=== PATIENT | male | born 1945 | race Caucasian/White ===

== ENCOUNTER 2019-01-07 18:04 | Inpatient (IN) ==
--- OUTSIDE RECORDS SUMMARY | 2019-01-07 18:08 | External Medical Summary | Continuity of Care Document ---
:1945 Author Name Emily Deleon Address Unavailable Unavailable , Care Team Providers Name Role Phone Atif Deleon Unavailable [email or web address] Unavailable Unavailable Problems Active medical history not documented Allergies and Adverse Reactions Allergy history not documented Medications Medications not documented Procedures Procedures not documented Immunizations Immunizations not documented Plan of Treatment Planned Observations Planned Goals not documented Results No Known Results Results not documented Encounters Appointment; Anil Srivastava M.D. 18-Nov-2010 16:20 Encounter Diagnosis: Problem not documented
[2019-01-07] MEDS ORDERED: SODIUM CHLORIDE 0.9% 1000ML 1,000 ML IV SCH ×2 (18:30→21:51)
--- NOTE | 2019-01-07 18:54 | CT Scan Report ---
CT SCAN OF THE BRAIN WITHOUT IV CONTRAST CLINICAL HISTORY: Change in mental status. COMPARISON STUDY: No priors. TECHNIQUE: Unenhanced axial CT scan of the brain is performed from the vertex to the skull base. A do se lowering technique was utilized adhering to the principles of ALARA. CT DOSE: 614.27 mGy.cm FINDINGS: Brain parenchyma: There are age-related involutional changes noting minimal microangiopathic change . There is an ill-defined geographic region of low attenuation centered in the left basal ganglia and also involving the left thalamus. This measures over 3 cm in dimension, and is best seen on image #1 7. There is no hemorrhage or mass effect. No extra-axial fluid collection is seen. Ventricles, sulci, cisterns: Prominent secondary to involutional change. Intracranial vasculature: There is atherosclerotic calcification of the cavernous carotid arteries. Calvarium: Unremarkable. Sinuses and mastoids: The visualized paranasal sinuses are clear. The mastoid air cells are well pneu matized. Orbits: The bony orbits are grossly intact. IMPRESSION: 1. There is an ill-defined radiographic region of low attenuation centered in the left basal ganglia and involving left thalamus. This is pathologically indeterminant, and may represent a subacute infar ct. A mass lesion could also have this appearance. Correlation with a contrast-enhanced MRI of the br ain is recommended for further assessment. 2. There is no hemorrhage or mass effect. Electronically signed by: Micah Watson M.D. 01/07/2019 6:53 PM
[2019-01-07 19:11] LABS: Basophils # (auto) 0.02 K/uL (0-0.2); Basophils % (auto) 0.3 %; Eosinophils # (auto) 0.29 K/uL (0-0.5); Eosinophils % (auto) 3.9 %; Hematocrit (blood only) 43.5 % (42-52); Hemoglobin 15.2 g/dL (14.0-18.0); Immature Granulocytes # (auto) 0.02 K/uL (0.00-0.02); Immature Granulocytes % (auto) 0.3 %; Lymphocytes # (auto) 2.01 K/uL (1.2-3.4); Lymphocytes % (auto) 27.3 %; Mean Corpuscular Hgb Conc 34.9 g/dL (32-36); Mean Corpuscular Volume 84.5 fL (80-100); Mean Platelet Volume 9.9 fL (7.4-10.4); Monocytes # (auto) 0.44 K/uL (0.11-0.59); Neutrophils # (auto) 4.58 K/uL (1.4-6.5); Neutrophils % (auto) 62.2 %; Platelet Count 183 K/uL (130-400); RDW Coefficient of Variation 13.5 % (11.5-14.5); RDW Standard Deviation 41.2 fL (36.4-46.3); Red Blood Count 5.15 M/uL (4.7-6.1); White Blood Count 7.36 K/uL (4.8-10.8)
[2019-01-07 19:27] LABS: Alanine Aminotransferase 32 U/L (12-78); Albumin Level 3.6 gm/dl (3.4-5.0); Aspartate Aminotransferase 15 U/L (15-37); BUN Creatinine Ratio 15.9 (10-20); Blood Urea Nitrogen 28 mg/dl (7-18); Calcium 9.5 mg/dl (8.5-10.1); Carbon Dioxide 30 mmol/L (21-32); Chloride 105 mmol/L (98-107); Creatinine Clr Calc Pharmacy 48.4 ml/min; Est GFR (African American) 43.5; Est GFR (Non-African American) 37.5; Glucose 114 mg/dl (70-99); Potassium 3.5 mmol/L (3.5-5.1); Sodium 144 mmol/L (136-145)
[2019-01-07 19:38] LABS: Alkaline Phosphatase 35 U/L (45-117); Bilirubin,Total 0.4 mg/dl (0.2-1); Globulin 3.7 gm/dl (2.5-4.0); Total Protein 7.3 gm/dl (6.4-8.2); Troponin I < 0.015 ng/ml (0-0.045)
[2019-01-07 19:39] LABS: Appearance Urine Clear (Clear); Bilirubin Urine Negative (Negative); Blood Urine Negative (Negative); Color Urine Yellow; Glucose Urine UA Negative (Negative); Ketones Urine Negative (Negative); Leukocyte Esterase Urine Negative (Negative); Nitrite Urine Negative (Negative); Protein Urine Negative (Negative); Specific Gravity Urine 1.019 (1.000-1.030); Urobilinogen Urine Positive (Negative)
[2019-01-07 19:50] LABS: T4 Free Thyroxine 1.72 ng/dl (0.8-1.6)
[2019-01-07] MEDS ORDERED: SODIUM CHLORIDE 0.9% 1000ML 1,000 ML IV ONE (19:54)
[2019-01-07 20:13] LABS: INR 1.2 (0.9-1.1); Partial Thromboplastin Ratio 0.9; Partial Thromboplastin Time 23.7 Seconds (21.0-31.0); Prothrombin Time 12.5 Seconds (9.0-12.0)
--- NOTE | 2019-01-07 21:41 | XRay Report ---
SINGLE VIEW CHEST CLINICAL HISTORY: Generalized weakness. FINDINGS: An AP, portable, upright chest radiograph is compared to study dated 07/15/2009. The examina tion is degraded by portable technique and apical lordotic positioning. The heart is mildly enlarge d. The pulmonary vasculature is noncongested. Mild bibasilar atelectasis is noted. No airspace consol idation or large pleural effusion is identified. No pneumothorax is seen. The bony skeletal structure s are osteopenic. The thorax is grossly intact. IMPRESSION: No active disease in the chest. Electronically signed by: Micah Watson M.D. 01/07/2019 9:39 PM
[2019-01-07] MEDS ORDERED: ONDANSETRON INJ 2 MG/ML 2 ML VIAL IV PRN (21:51)
[2019-01-07] MEDS ORDERED: PHARMACIST DISCHARGE MED REC CONSULT PRN (21:51)
[2019-01-07] MEDS ORDERED: NITROGLYCERIN SL 0.4 MG/TAB TAB SL PRN (21:51)
[2019-01-07] MEDS ORDERED: POLYETHYLENE (MIRALAX) 17 GM PACK PO PRN (21:51)
[2019-01-07] MEDS ORDERED: ACETAMINOPHEN 325 MG TAB PO PRN (21:51)
[2019-01-07] MEDS ORDERED: CLOPIDOGREL BISULFATE 75 MG TAB PO ONE (21:51)
[2019-01-07] MEDS ORDERED: DEXTROSE 50% 50 ML SYRINGE IV PRN (22:00)
[2019-01-07] MEDS ORDERED: CARBOHYDRATES FOR HYPOGLYCEMIA PO PRN (22:00)
[2019-01-07] MEDS ORDERED: GLUCAGON FOR INJ 1 MG VIAL SQ PRN (22:00)
[2019-01-07] MEDS ORDERED: GLUCOSE 40% GEL 15 GM TUBE PO PRN (22:00)
[2019-01-07] MEDS ORDERED: GLUCOSE 10 TABS/TUBE PO PRN (22:00)
[2019-01-07] MEDS ORDERED: GADOBUTROL 65ML VIAL IV PRN (23:28)
--- NOTE | 2019-01-07 23:41 | History and Physical Report ---
DATE OF ADMISSION: 01/07/2019 CHIEF COMPLAINT: Memory issues and also right eye vision issues. HISTORY OF PRESENT ILLNESS: A 73-year-old male with past medical history significant for type 2 diabetes, hypothyroidism, hyperlipidemia, BPH, chronic kidney disease stage III, hypertension, obesity, solitary kidney, comes because of ongoing memory issues and also complains of right vision issues. The patient says it is going on for last 3 weeks, but got it more worse last 1 week, but family thinks all started about a week ago. They also said they saw the family doctor, did a mini mental exam, but could not see it in the Epic records. He also saw ophthalmology last Tuesday he told them that he has some vision issues with the right eye and they checked his eye and told it was fine as per the patient and the family. There was question of some balance issues. The patient thinks because he could not see right he has some balance issues, but the family thinks he is walking okay. Speech is clear. No swallowing issues. Appetite is good. Denies any headaches. No nausea, no vomiting, no chest pain, no shortness of breath, no cough, no fever, no chills. Sleeping okay. No abdominal pain. Normal bowel and bladder movements. Denies any blood in the stools or black stools. No dysuria or hematuria. No swelling in the legs, no rash. Currently resting comfortably and hemodynamically stable. ALLERGIES: ASPIRIN. PAST MEDICAL HISTORY: As mentioned above. 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 MEDICATIONS: The patient is on amlodipine 10 mg p.o. daily, chlorthalidone 50 mg p.o. daily, fenofibrate 160 mg p.o. daily, glimepiride 4 mg p.o. daily, insulin glargine U300 14 units daily, levothyroxine 75 mcg p.o. daily, Tradjenta 5 mg p.o. daily Lovastatin 40 mg p.o. daily, metoprolol succinate 50 mg p.o. b.i.d., Flomax 0.4 mg p.o. daily. FAMILY HISTORY: No significant family history. SOCIAL HISTORY: , lives with his . No smoking. Former smoker, quit in 2004. He drinks beer 1-2 weeks. No drug use. REVIEW OF SYMPTOMS: As per HPI. Rest of review of systems negative. PHYSICAL EXAMINATION: GENERAL: The patient is obese, not in acute distress. VITAL SIGNS: Temperature 36.8, pulse 69, respiratory rate 18, blood pressure 160/90, oxygen 96% room air. HEENT: No pallor, no icterus. Pupils equal, round, and reactive to light. His vision is blurry on the right side, but vision jasso are okay. Extraocular muscles intact. NECK: No JVD, no neck masses, no carotid bruits. CARDIOVASCULAR: S1, S2 heard, regular rate and rhythm, no murmur, no gallop. RESPIRATORY SYSTEM: Normal AP diameter. No accessory muscle use. No wheezing, no crackles. ABDOMEN: Soft, bowel sounds present, nontender. No distention. CENTRAL NERVOUS SYSTEM: Cranial nerves II-XII grossly intact. Oriented to name and place only. Could not subtract 7 from 93, could tell his date of . Power 5/5 in all extremities. Sensation is intact. Position sense intact. [id number] test normal. Coordination of movements normal. No pronator drift. Jckq-ak-[id number] test normal. Babinski negative. EXTREMITIES: No edema, no erythema. LABORATORY DATA: WBC 7.3, hemoglobin 15.2, hematocrit 43.5, platelets 183. PT 12.5, INR 1.2, APTT 23.7. Sodium 144, potassium 3.5, chloride 105, bicarbonate 30, BUN 28, creatinine 1.7, serum glucose 114, calcium 9.4, total bilirubin 0.4, AST 15, ALT 34, alkaline phosphatase 35. Troponin I less than 0.015. TSH 0.067. Free T4 1.72. Urinalysis unremarkable. IMAGING: Chest x-ray: No acute findings seen. CT of the head: There is an ill-defined radiographic region of low attenuation centered in the left basal ganglia involving the left thalamus. This is pathologically indeterminate and may represent a subacute infarct, a mass lesion could also have this appearance. Correlation with contrast enhanced MRI of the brain is recommended for further assessment. There is no hemorrhage or mass effect. EKG: Shows left atrial fibrillation, rate of 75. Nonspecific T-wave abnormalities. ASSESSMENT AND PLAN: This is a 73-year-old male who presents with memory issues and also some vision issues in the right eye. CAT scan showing possible subacute infarct on the left basal ganglia and left thalamus and also mass could also have similar appearance. 1. Stroke-like symptoms with some memory issues and some vision issues in the right eye, going on for about 1 week. Saw ophthalmology last week and as per the patient and family,eye exam was fine. CAT scan shows questionable subacute infarct in the left basal ganglia and thalamus region. A mass also could have similar. We will do full stroke workup with MRI scans, MRI of the head with and without contrast, MRA of the head and neck, carotid Doppler, neuro checks, neuro consult. The patient allergic to aspirin,. Will give Plavix. PT, OT and speech evaluation. Close monitor on tele floor. 2. New-onset AFib, rates are under control. The patient is on Toprol-XL at home, question of been on 50 daily or 100 mg b.i.d., needs to verify. Continue with 50 mg daily and monitor. We will consult cardiology. We will start him on IV heparin once MRI scan shows no brain mass. 3. Diabetes. Hold his home p.o. medication, continue home insulin glargine, insulin sliding scale. Follow HbA1c levels. 4. Hypertension. Continue his lisinopril, amlodipine, chlorthalidone, adjust Toprol-XL dose, monitor the blood pressure. 5. Hyperlipidemia. Continue statin. Follow his lipid profile. Also on fenofibrate. 6. Deep venous thrombosis prophylaxis, sequential compression devices for now. DISPOSITION: Close monitor in tele floor. Level 1 full code. MTDD
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
[2019-01-08 04:28] LABS: Basophils # (auto) 0.02 K/uL (0-0.2); Basophils % (auto) 0.3 %; Eosinophils # (auto) 0.27 K/uL (0-0.5); Hematocrit (blood only) 41.9 % (42-52); Hemoglobin 14.5 g/dL (14.0-18.0); Immature Granulocytes # (auto) 0.01 K/uL (0.00-0.02); Immature Granulocytes % (auto) 0.1 %; Lymphocytes # (auto) 2.09 K/uL (1.2-3.4); Lymphocytes % (auto) 30.7 %; Mean Corpuscular Hgb Conc 34.6 g/dL (32-36); Mean Corpuscular Volume 83.5 fL (80-100); Mean Platelet Volume 9.1 fL (7.4-10.4); Monocytes # (auto) 0.51 K/uL (0.11-0.59); Monocytes % (auto) 7.5 %; Neutrophils % (auto) 57.4 %; Platelet Count 190 K/uL (130-400); RDW Coefficient of Variation 13.4 % (11.5-14.5); RDW Standard Deviation 40.2 fL (36.4-46.3); Red Blood Count 5.02 M/uL (4.7-6.1)
[2019-01-08 04:44] LABS: BUN Creatinine Ratio 16.4 (10-20); Calcium 8.9 mg/dl (8.5-10.1); Creatinine Clr Calc Pharmacy 57.3 ml/min; Est GFR (African American) 53.3; Potassium 3.2 mmol/L (3.5-5.1)
[2019-01-08] MEDS ORDERED: POTASSIUM CHLORIDE 20 MEQ TABCR PO STA (06:08)
[2019-01-08 06:19] LABS: Estimated Average Glucose 160 mg/dl; Hemoglobin A1C 7.2 % (4.5-5.6)
[2019-01-08] MEDS ORDERED: LEVOTHYROXINE SODIUM 175 MCG TABLET PO SCH (06:30)
--- NOTE | 2019-01-08 06:34 | Magnetic Resonance Report ---
MR angio head wo con HISTORY: Mental memory loss. Mental status change. cva TECHNIQUE: 3-D [id number] MRA of the brain was performed without contrast. COMPARISON STUDY: None. FINDINGS: Lesion of the left thalamus is again noted. Reference is made to the patient's MRI of the b rain. Mild scattered atherosclerotic change. No evidence for high-grade stenotic process. No evidence for a neurysm. Small caliber right vertebral artery presumably on a congenital basis. IMPRESSION: 1. Left thalamic lesion with reference made to the patient's MRI of same date. 2. Mild scattered atherosclerotic change throughout the intracranial vasculature with no evidence for high-grade stenosis. 3. Hypoplastic right vertebral artery The above report was generated using voice recognition software. It may contain grammatical, syntax or spelling errors. Electronically signed by: Yfn Coronel M.D. 01/08/2019 6:33 AM
--- NOTE | 2019-01-08 06:43 | Magnetic Resonance Report ---
MRI OF THE BRAIN WITHOUT AND WITH IV CONTRAST CLINICAL HISTORY: Memory loss. Right eye visual disturbance. Evaluate for cerebrovascular accident/ma ss. COMPARISON STUDY: Head CT January 07, 2019. TECHNIQUE: Utilizing a 1.5 Sharon magnet and dedicated coil, multiplanar, multiecho imaging of the br ain was performed pre and postcontrast administration. IV administration of 12 mL of Gadavist contra st was uneventful. Thin cut T1 post contrast imaging was performed with multiplanar reconstructions. FINDINGS: No foci of restricted diffusion are noted. Note is made of a heterogeneously enhancing mass within the left frontotemporal region with extension into the left lateral ventricle. This mass penelope ures approximately 4.6 x 4 x 3.5 cm. Portions of this mass are cystic or necrotic. This mass has mode rate associated vasogenic edema with mass effect, including 5 mm of rightward midline shift. A subepe ndymal enhancing nodule within the body of the left lateral ventricle measures 6 mm. Several small en hancing foci within the left temporal lobe measure up to 7 mm. There is no hemorrhage. Basilar cister ns are patent. There are no extra axial collections. Flow-voids in the major intracranial vessels are present. Calvarial signal is normal. Orbits are unremarkable. There may be slight asymmetric dural t hickening of the left tentorium. IMPRESSION: 1. 4.6 x 4 cm heterogeneously enhancing intra-axial mass within the left frontotemporal region with e xtension into the left lateral ventricle. Moderate mass effect with vasogenic edema and mild rightwar d midline shift. A small subependymal enhancing nodule and multiple small enhancing foci within the l eft temporal lobe. 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 Metastatic disease is within the differential although considered less likely. Neurosurgical consultation is recommended. 2. No evidence for acute infarction. Electronically signed by: Dontrell Grove M.D. 01/08/2019 6:41 AM
--- NOTE | 2019-01-08 06:50 | Magnetic Resonance Report ---
MR angio neck wo con CLINICAL HISTORY: Strokelike symptoms. COMPARISON STUDY: No previous studies for comparison. FINDINGS: CT angiography neck was performed without the benefit of contrast. This limits the study. T here is no evidence of hemodynamically significant carotid stenosis. The right vertebral artery appea rs hypoplastic. IMPRESSION: Noncontrast examination. No evidence of hemodynamically significant internal carotid art alexis stenosis Electronically signed by: Levi Wise M.D. 01/08/2019 6:49 AM
[2019-01-08] MEDS ORDERED: dexAMETHasone 6 MG in SYRINGE 0 ML IV STA (07:14)
[2019-01-08] MEDS: CHLORTHALIDONE 25 MG TAB PO SCH (07:51)
[2019-01-08] MEDS: LOVASTATIN 20 MG TAB PO SCH (07:52)
[2019-01-08] MEDS: TAMSULOSIN HCL 0.4 MG CAP PO SCH ×2 (07:52→07:53)
[2019-01-08] MEDS: AMLODIPINE BESYLATE 5 MG TAB PO SCH (07:52)
[2019-01-08] MEDS: INSULIN ASPART 100 UNITS/ML 3 ML PEN SC SCH ×4 (07:56→20:57)
[2019-01-08] MEDS: FENOFIBRATE NANOCRYSTALLIZED 145 MG TABLET PO SCH (08:53)
[2019-01-08] MEDS ORDERED: CLOPIDOGREL BISULFATE 75 MG TAB PO SCH (09:00)
[2019-01-08] MEDS ORDERED: METOPROLOL SUCC 50MG EXT REL TAB PO SCH (09:00)
[2019-01-08] MEDS ORDERED: INSULIN GLARGINE SOLOSTAR 100 UNITS/ML 3 ML PEN SC SCH (09:00)
--- NOTE | 2019-01-08 09:17 | Cardiology Consultation ---
Date of Consultation January 08, 2019 Assessment & Plan (1) Brain tumor: (2) A-fib: The patient has an outpatient work-up scheduled in [place] and will most likely have surgery within the week according to neurosurgery. They are okay with anticoagulation and we will stop his Plavix and start him on Eliquis which can be stopped prior to his operation. I would continue with a daily dose of metoprolol as he is hemodynamically stable and his heart rates are controlled. I considered adding amiodarone for quick conversion but were uncertain as to how long he has been in the atrial fibrillation. In addition, he will have to stay on a monitor for several days while we load the antiarrhythmic. I feel he is hemodynamically stable to undergo surgery and should proceed.I will review his echocardiogram however, and have further recommendations if necessary. History of Present Illness Attending Physician: Sarai Velasco MD History of Present Illness This is a 73-year-old male patient with no prior history of heart disease. He was in his usual state of health until about a month ago he began to have memory loss and balance problems. 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 He is clinically stable. Neurosurgery at [facility] in [place] was contacted and an outpatient evaluation is planned for this week. After admission however, the patient is noted to be in a rate controlled atrial fibrillation. He is completely asymptomatic in regard to the atrial fibrillation. He does have an allergy to aspirin and was started on Plavix. Allergies Allergy/AdvReac Type Severity Reaction Status Date / Time aspirin Allergy Intermediate HIVES Verified 01/07/19 21:22 Home Medications Home Medications Medication Instructions Recorded Confirmed Type amlodipine 10 mg PO DAILY 01/07/19 01/07/19 History chlorthalidone 50 mg PO DAILY 01/07/19 01/07/19 History fenofibrate 160 mg PO DAILY 01/07/19 01/07/19 History glimepiride 4 mg PO DAILY 01/07/19 01/07/19 History insulin glargine U-300 conc 14 unit SUBCUT HS 01/07/19 01/07/19 History [Toujeo SoloStar U-300 Insulin] levothyroxine 175 mcg PO DAILY 01/07/19 01/07/19 History linagliptin [Tradjenta] 5 mg PO DAILY 01/07/19 01/07/19 History lisinopril 5 mg PO DAILY 01/07/19 01/07/19 History lovastatin 40 mg PO DAILY 01/07/19 01/07/19 History metoprolol succinate 50 mg PO DAILY 01/07/19 01/07/19 History tamsulosin 0.4 mg PO DAILY 01/07/19 01/07/19 History Patient History Medical History No pertinent past medical history Surgical History No pertinent past surgical history Family History Other No pertinent family history Social History Preferred Language: Ukrainian Communication Ability: Effective Desulphuring Operator Required: No Beliefs That Will Affect Care: None Current Living Situation: Family Other Information That Helps Us Care for You: No Feels Safe at Home: Yes Safety Concerns: Feels Safe At This Time Smoking Status: Never smoker Do You Dip or Chew Tobacco: No ; Second Hand Exposure: No ; Tobacco Cessation Education Requested by Patient: No Hx Alcohol Use: No Hx Substance Use: No Review of Systems Review of Systems: All systems reviewed & are unremarkable except as noted in HPI & below Not much different additional information can be obtained from this patient. He is not a good historian because of the frontal lobe tumor. Most of the information is taken from [facility] and previous records. Physical Exam Physical Exam: General: no acute distress and stated age Head: normocephalic, no masses, lesions, tenderness or abnormalities Eyes: conjunctiva are pink and non-injected, sclera clear Neck: supple, no adenopathy, no bruits, normal jugular venous pulse, no hepatojugular reflux Chest: normal shape and normal respiratory effort Lungs: clear to auscultation and percussion Cardiac Exam: - regular rate & rhythm, no murmurs gallops or rubs - normal S1, normal S2 Pulses: 2(+) throughout Abdomen: abdomen soft, non-tender, no abnormal masses and no hepatosplenomegaly Musculoskeletal: no gait disturbance, no joint inflammation, no deforming arthritis Extremities: no edema and no cyanosis Neuro: grossly normal exam Results & Data Vital Signs (Past 12 Hours) Vital Signs Temp Pulse Resp BP Pulse Ox 01/08/19 04:00 36.7 C 71 18 148/91 H 95 01/08/19 00:00 36.5 C 74 16 154/103 H 95 01/07/19 22:00 36.5 C 70 18 163/110 H 97 Laboratory Results Laboratory Results - last 24 hr 01/07/19 01/07/19 01/07/19 18:57 18:57 18:57 WBC 7.36 RBC 5.15 Hgb 15.2 Hct 43.5 MCV 84.5 MCH 29.5 MCHC 34.9 RDW Std Deviation 41.2 RDW Coeff of Allan 13.5 Plt Count 183 MPV 9.9 Immature Gran % (Auto) 0.3 Neut % (Auto) 62.2 Lymph % (Auto) 27.3 [place] % (Auto) 6.0 Eos % (Auto) 3.9 Baso % (Auto) 0.3 Immature Gran # (Auto) 0.02 Neut # (Auto) 4.58 Lymph # (Auto) 2.01 [place] # (Auto) 0.44 Eos # (Auto) 0.29 Baso # (Auto) 0.02 PT Cancelled INR Cancelled APTT PTT Ratio Sodium 144 Potassium 3.5 Chloride 105 Carbon Dioxide 30 Anion Gap 8.0 BUN 28 H Creatinine 1.74 H Est Cr Clr Drug Dosing 48.4 Est GFR ( Amer) 43.5 Est GFR (Non-Af Amer) 37.5 BUN/Creatinine Ratio 15.9 Glucose 114 H Estimat Average Glucose Hemoglobin A1c Calcium 9.5 Total Bilirubin 0.4 AST 15 ALT 32 Alkaline Phosphatase 35 L Troponin I < 0.015 Total Protein 7.3 Albumin 3.6 Globulin 3.7 Albumin/Globulin Ratio 1.0 Triglycerides Cholesterol LDL Cholesterol, Calc VLDL Cholesterol, Calc HDL Cholesterol Cholesterol/HDL Ratio TSH 0.067 L Free T4 1.72 H Urine Color Urine Appearance Urine pH Ur Specific [place] Urine Protein Urine Glucose (UA) Urine Ketones Urine Blood Urine Nitrite Urine Bilirubin Urine Urobilinogen Ur Leukocyte Esterase Nasal Screen MRSA (PCR) 01/07/19 01/07/19 01/07/19 19:24 19:51 Unknown WBC RBC Hgb Hct MCV MCH MCHC RDW Std Deviation RDW Coeff of [place] Plt Count MPV Immature Gran % (Auto) Neut % (Auto) Lymph % (Auto) [place] % (Auto) Eos % (Auto) Baso % (Auto) Immature Gran # (Auto) Neut # (Auto) Lymph # (Auto) [place] # (Auto) Eos # (Auto) Baso # (Auto) PT 12.5 H INR 1.2 H APTT 23.7 PTT Ratio 0.9 Sodium Potassium Chloride Carbon Dioxide Anion Gap BUN Creatinine Est Cr Clr Drug Dosing Est GFR ( Amer) Est GFR (Non-Af Amer) BUN/Creatinine Ratio Glucose Estimat Average Glucose Hemoglobin A1c Calcium Total Bilirubin AST ALT Alkaline Phosphatase Troponin I Total Protein Albumin Globulin Albumin/Globulin Ratio Triglycerides Cholesterol LDL Cholesterol, Calc VLDL Cholesterol, Calc HDL Cholesterol Cholesterol/HDL Ratio TSH Free T4 Urine Color Yellow Urine Appearance Clear Urine pH 6.0 Ur Specific [place] 1.019 Urine Protein Negative Urine Glucose (UA) Negative Urine Ketones Negative Urine Blood Negative Urine Nitrite Negative Urine Bilirubin Negative Urine Urobilinogen Positive H Ur Leukocyte Esterase Negative Nasal Screen MRSA (PCR) Negative 01/08/19 01/08/19 01/08/19 04:15 04:15 04:15 WBC 6.80 RBC 5.02 Hgb 14.5 Hct 41.9 L MCV 83.5 MCH 28.9 MCHC 34.6 RDW Std Deviation 40.2 RDW Coeff of [place] 13.4 Plt Count 190 MPV 9.1 Immature Gran % (Auto) 0.1 Neut % (Auto) 57.4 Lymph % (Auto) 30.7 [place] % (Auto) 7.5 Eos % (Auto) 4.0 Baso % (Auto) 0.3 Immature Gran # (Auto) 0.01 Neut # (Auto) 3.90 Lymph # (Auto) 2.09 [place] # (Auto) 0.51 Eos # (Auto) 0.27 Baso # (Auto) 0.02 PT INR APTT PTT Ratio Sodium 145 Potassium 3.2 L Chloride 108 H Carbon Dioxide 28 Anion Gap 9.0 BUN 24 H Creatinine 1.47 H Est Cr Clr Drug Dosing 57.3 Est GFR ( Amer) 53.3 Est GFR (Non-Af Amer) 46.0 BUN/Creatinine Ratio 16.4 Glucose 101 H Estimat Average Glucose 160 Hemoglobin A1c 7.2 H Calcium 8.9 Total Bilirubin AST ALT Alkaline Phosphatase Troponin I Total Protein Albumin Globulin Albumin/Globulin Ratio Triglycerides 243 H Cholesterol 147 LDL Cholesterol, Calc 72 VLDL Cholesterol, Calc 49 HDL Cholesterol 26 Cholesterol/HDL Ratio 6 TSH 0.074 L Free T4 Urine Color Urine Appearance Urine pH Ur Specific [place] Urine Protein Urine Glucose (UA) Urine Ketones Urine Blood Urine Nitrite Urine Bilirubin Urine Urobilinogen Ur Leukocyte Esterase Nasal Screen MRSA (PCR) Medications Administered Current Inpatient Medications Acetaminophen (Tylenol) 650 mg PO Q4H PRN PRN Reason: Pain or Fever Stop: 02/06/19 21:50 Amlodipine Besylate (Norvasc) 10 mg PO DAILY [facility]AM Stop: 02/07/19 08:59 Last Admin: 01/08/19 07:52 Dose: 10 mg Documented by: Chlorthalidone (Hygroton) 50 mg PO DAILY [facility] Stop: 02/07/19 08:59 Last Admin: 01/08/19 07:51 Dose: 50 mg Documented by: Clopidogrel Bisulfate (Plavix) 75 mg PO QAM ADAM Stop: 02/07/19 08:59 Last Admin: 01/08/19 07:53 Dose: 75 mg Documented by: Dextrose (Dextrose 50%) 25 - 50 ml IV UD PRN; Protocol PRN Reason: Hypoglycemia Protocol Stop: 02/06/19 21:59 Fenofibrate (Tricor) 145 mg PO DAILY [facility] Stop: 02/07/19 08:59 Last Admin: 01/08/19 08:53 Dose: 145 mg Documented by: Gadobutrol (Gadavist 65ml) 12 ml IV ONCE PRN PRN Reason: Interaction Checking Stop: 01/11/19 23:27 Last Admin: 01/07/19 23:29 Dose: 12 ml Documented by: Glucagon (Glucagen) 1 mg SQ UD PRN; Protocol PRN Reason: Hypoglycemia Protocol Stop: 02/06/19 21:59 Glucose (Glucose 40%) 15 - 30 gm PO UD PRN; Protocol PRN Reason: Hypoglycemia Protocol Stop: 02/06/19 21:59 Glucose (Dex4 Glucose) 4 - 8 tabs PO UD PRN; Protocol PRN Reason: Hypoglycemia Protocol Stop: 02/06/19 21:59 Sodium Chloride (Nss 1000ml) 1,000 mls @ 75 mls/hr IV .[id number] ADAM Stop: 01/08/19 11:00 Last Admin: 01/07/19 22:25 Dose: 75 mls/hr Documented by: Insulin Aspart (Novolog Flexpen) 0 units SC ACHS [facility] Stop: 02/07/19 07:29 Last Admin: 01/08/19 07:56 Dose: Not Given Documented by: Insulin Glargine (Lantus Solostar Pen) 14 units SQ DAILY [facility] Stop: 02/08/19 08:59 Insulin Glargine (Lantus Solostar Pen) 12 units SC DAILY [facility] Stop: 02/07/19 08:59 Last Admin: 01/08/19 08:52 Dose: 12 units Documented by: [facility]othy[facility]ine [facility]) [facility] Stop: 02/07/19 06:29 Last Admin: 01/08/19 06:24 Dose: 175 mcg Documented by: Lovastatin (Mevacor) 40 mg PO DAILY [facility] Stop: 02/07/19 08:59 Last Admin: 01/08/19 07:52 Dose: 40 mg Documented by: Metoprolol Succinate (Toprol Xl) 50 mg PO DAILY [facility] Stop: 02/07/19 08:59 Last Admin: 01/08/19 07:52 Dose: 50 mg Documented by: Miscellaneous (Carbohydrates For Hypoglycemia) 15 - 30 gm PO UD PRN PRN Reason: Hypoglycemia Treatment Stop: 02/06/19 21:59 Miscellaneous Information (Pharmacist Discharge Med Rec Consult) 1 ea N/A UD PRN PRN Reason: Consult Stop: 02/06/19 21:50 Nitroglycerin (Nitrostat) 0.4 mg SL UD PRN PRN Reason: Chest Pain Stop: 02/06/19 21:50 Ondansetron HCl (Zofran) 4 mg IV Q6H PRN PRN Reason: Nausea Stop: 02/06/19 21:50 Polyethylene Glycol (Miralax Powder Packet) 17 gm PO DAILY PRN PRN Reason: Constipation Stop: 02/06/19 21:50 Tamsulosin HCl (Flomax) 0.4 mg PO DAILY [facility] Stop: 02/07/19 08:59 Last Admin: 01/08/19 07:53 Dose: 0.4 mg Documented by: (1) A-fib Atrial fibrillation type: unspecified Qualified Code(s): I48.91 - Unspecified atrial fibrillation
--- NOTE | 2019-01-08 09:19 | Hospitalist Progress Note ---
Date of Service January 08, 2019 Subjective Free t4 is high. Needs adjustment of synthyroid dose and followup with PCP.. Results & Data Vital Signs (Past 12 Hours) Vital Signs Temp Pulse Resp BP Pulse Ox 01/08/19 04:00 36.7 C 71 18 148/91 H 95 01/08/19 00:00 36.5 C 74 16 154/103 H 95 01/07/19 22:00 36.5 C 70 18 163/110 H 97
[2019-01-08] MEDS ORDERED: PERFLUTREN LIPID MICROSPHERE (DEFINITY) IV ONE (09:21)
[2019-01-08] MEDS: APIXABAN 5 MG TABLET PO SCH ×2 (11:53→20:53)
[2019-01-08] MEDS ORDERED: AMIODARONE 200 MG TAB PO SCH (12:00)
[2019-01-08] MEDS: DEXAMETHASONE SOD PHOSPHATE 2 MG in SYRINGE 0 ML IV SCH ×2 (14:00→20:01)
--- NOTE | 2019-01-08 14:17 | Hospitalist Progress Note ---
Date of Service January 08, 2019 Assessment & Plan (1) Memory loss: Admitted with the acute memory impairment with history of memory problem for the last 1 month Not associated with any significant headache, visual symptoms and/or other neurological symptoms MRI showed 4.6 x 4 cm left frontotemporal lesion with vasogenic edema Case discussed with the neurosurgery at [place] and the neurosurgeon Dr. Lezama will see him on the at 3:15 PM in [place] for evaluation and subsequent management He has put on Decadron 2 mg every 6 hours to decrease the brain edema Case discussed with most of the family members in front of the patient this morning Answered all of their questions Patient has been feeling better and still has memory lapses Hemodynamically stable (2) Brain tumor: MRI of the brain:1. 4.6 x 4 cm heterogeneously enhancing intra-axial mass within the left frontotemporal region with extension into the left lateral ventricle. Moderate mass effect with vasogenic edema and mild rightward midline shift. A small subependymal enhancing nodule and multiple small enhancing foci within the left temporal lobe. 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 Metastatic disease is within the differential although considered less likely. Neurosurgical consultation is recommended. 2. No evidence for acute infarction. As brain tumor-could be malignant Associated vasogenic edema Decadron 2 mg p.o. every 6 hours prescribed Has been feeling (3) A-fib: Noted to have A. fib with controlled rate Evaluated by white metal corrosion proofer Has been put on Eliquis Echo: Aortic valve sclerosis mild without significant aortic stenosis, moderate concentric left ventricular hypertrophy, normal left ventricular size with EF of 55 to 60%, right ventricular systolic function is normal, left atria and right atria are normal, no significant valvular pathology and no interatrial shunt demonstrated Remains stable hemodynamically (4) DAVIS (acute kidney injury): DAVIS likely secondary to dehydration We will monitor her while in the hospital (5) Hypothyroidism: Has been on 175 mcg levothyroxine TSH is noted to be low at 0.067 with free T4 high at 1.72 We will decrease thyroxine dose to 150 mcg daily We need to repeat TSH in about 3 to 4 weeks (6) Diabetes mellitus: Will hold metformin Continue with SSI (7) Hypertension: Blood pressure remains in the upper side of normal Will not change any of his blood pressure medications right now DVT prophylaxis Eliquis CODE STATUS Full The case was discussed with many of the family members including the and service in presence of the patient Answered all of their questions They seem quite satisfied The patient will be discharged home tomorrow He has a strongly advised to keep appointment with neurosurgeon in [place] as an outpatient on 10 January at 3:15 PM Subjective 01/08 The patient was seen and examined in ICU He has been complaining of memory impairment for the last 1 month and the condition got worse yesterday He still has memory impairment but denies any other significant symptoms No headache, no blurred vision, no nausea and/or vomiting, no numbness or tingling in the extremities, no problem with walking, talking and/or swallowing Review of Systems Review of Systems: All systems reviewed and are unremarkable except as noted below Neurologic: + headache(s) (Complaint to have headache about 2 to 3 days back but not now) and + memory loss (Has been having memory impairment for the last 1 month and is worse before admission); no paralysis, no loss of sensation, no tingling, no numbness, no paresthesia and no tremor(s) Physical Exam Physical Exam: Lying in bed comfortably and is very anxious Constitutional: well developed, well nourished, + ill appearing and + obese; no acute distress Eyes: PERRL, conjunctivae normal, anicteric sclerae ENMT: external ear and nose normal, oropharynx normal Neck: trachea midline, no thyromegaly Respiratory: normal respiratory effort Auscultation: lungs clear to auscultation bilaterally; no crackles Cardiovascular: Rate/Rhythm: + abnormal rate, + abnormal rhythm and not tachycardic Heart Sounds: no murmur Neurologic: normal touch/pain/proprioception, CN's II-XI intact bilaterally and moves all extremities; no focal motor deficits Speech / Cognition: normal speech Psychiatric: Affect: + anxious affect Mood: + anxious mood Cognition: + recent memory not intact and + remote memory not intact Results & Data Vital Signs (Past 12 Hours) Vital Signs Temp Pulse Pulse Resp BP BP Pulse Ox 01/08/19 13:00 80 19 01/08/19 10:56 36.8 C 81 13 148/83 H 95 01/08/19 04:00 36.7 C 71 18 148/91 H 95 Laboratory Results Short CBC 01/07/19 01/08/19 Range/Units 18:57 04:15 WBC 7.36 6.80 (4.8-10.8) K/uL Hgb 15.2 14.5 (14.0-18.0) g/dL Hct 43.5 41.9 L (42-52) % Plt Count 183 190 (130-400) K/uL BMP 01/07/19 01/08/19 18:57 04:15 Sodium 144 145 Potassium 3.5 3.2 L Chloride 105 108 H Carbon Dioxide 30 28 BUN 28 H 24 H Creatinine 1.74 H 1.47 H Glucose 114 H 101 H Calcium 9.5 8.9 Cardiac Enzymes 01/07/19 Range/Units 18:57 Troponin I < 0.015 (0-0.045) ng/ml Liver Function 01/07/19 Range/Units 18:57 Total Bilirubin 0.4 (0.2-1) mg/dl AST 15 (15-37) U/L ALT 32 (12-78) U/L Alkaline Phosphatase 35 L (45-117) U/L Albumin 3.6 (3.4-5.0) gm/dl Urine 01/07/19 Range/Units 19:24 Urine Color Yellow Urine Appearance Clear (Clear) Urine pH 6.0 (4.5-7.5) Ur Specific [place] 1.019 (1.000-1.030) Urine Protein Negative (Negative) Urine Glucose (UA) Negative (Negative) Medications Administered Current Inpatient Medications Acetaminophen (Tylenol) 650 mg PO Q4H PRN PRN Reason: Pain or Fever Stop: 02/06/19 21:50 Amlodipine Besylate (Norvasc) 10 mg PO DAILY [facility] Stop: 02/07/19 08:59 Last Admin: 01/08/19 07:52 Dose: 10 mg Documented by: Apixaban (Eliquis) 5 mg PO BID [facility] Stop: 02/07/19 09:29 Last Admin: 01/08/19 11:53 Dose: 5 mg Documented by: Chlorthalidone (Hygroton) 50 mg PO DAILY [facility] Stop: 02/07/19 08:59 Last Admin: 01/08/19 07:51 Dose: 50 mg Documented by: Dextrose (Dextrose 50%) 25 - 50 ml IV UD PRN; Protocol PRN Reason: Hypoglycemia Protocol Stop: 02/06/19 21:59 Fenofibrate (Tricor) 145 mg PO DAILY [facility] Stop: 02/07/19 08:59 Last Admin: 01/08/19 08:53 Dose: 145 mg Documented by: Gadobutrol (Gadavist 65ml) 12 ml IV ONCE PRN PRN Reason: Interaction Checking Stop: 01/11/19 23:27 Last Admin: 01/07/19 23:29 Dose: 12 ml Documented by: Glucagon (Glucagen) 1 mg SQ UD PRN; Protocol PRN Reason: Hypoglycemia Protocol Stop: 02/06/19 21:59 Glucose (Glucose 40%) 15 - 30 gm PO UD PRN; Protocol PRN Reason: Hypoglycemia Protocol Stop: 02/06/19 21:59 Glucose (Dex4 Glucose) 4 - 8 tabs PO UD PRN; Protocol PRN Reason: Hypoglycemia Protocol Stop: 02/06/19 21:59 Dexamethasone Sodium Phosphate (2 mg/ Syringe) 0.5 mls @ 1 mls/min IV Q6H [facility] Stop: 02/07/19 13:59 Last Admin: 01/08/19 14:00 Dose: 1 mls/min Documented by: Insulin Aspart (Novolog Flexpen) 0 units SC ACHS [facility] Stop: 02/07/19 07:29 Last Admin: 01/08/19 11:58 Dose: 1 units Documented by: Insulin Glargine (Lantus Solostar Pen) 14 units SQ DAILY [facility] Stop: 02/08/19 08:59 Insulin Glargine (Lantus Solostar Pen) 12 units SC DAILY [facility] Stop: 02/07/19 08:59 Last Admin: 01/08/19 08:52 Dose: 12 units Documented by: Levothyroxine Sodium (Synthroid) 175 mcg PO DAILYBB [facility] Stop: 02/07/19 06:29 Last Admin: 01/08/19 06:24 Dose: 175 mcg Documented by: Lovastatin (Mevacor) 40 mg PO DAILY [facility] Stop: 02/07/19 08:59 Last Admin: 01/08/19 07:52 Dose: 40 mg Documented by: Metoprolol Succinate (Toprol Xl) 50 mg PO QAM [facility] Stop: 02/08/19 08:59 Miscellaneous (Carbohydrates For Hypoglycemia) 15 - 30 gm PO UD PRN PRN Reason: Hypoglycemia Treatment Stop: 02/06/19 21:59 Miscellaneous Information (Pharmacist Discharge Med Rec Consult) 1 ea N/A UD PRN PRN Reason: Consult Stop: 02/06/19 21:50 Nitroglycerin (Nitrostat) 0.4 mg SL UD PRN PRN Reason: Chest Pain Stop: 02/06/19 21:50 Ondansetron HCl (Zofran) 4 mg IV Q6H PRN PRN Reason: Nausea Stop: 02/06/19 21:50 Polyethylene Glycol (Miralax Powder Packet) 17 gm PO DAILY PRN PRN Reason: Constipation Stop: 02/06/19 21:50 Tamsulosin HCl (Flomax) 0.4 mg PO DAILY [facility] Stop: 02/07/19 08:59 Last Admin: 01/08/19 07:53 Dose: 0.4 mg Documented by: (1) A-fib Atrial fibrillation type: unspecified Qualified Code(s): I48.91 - Unspecified atrial fibrillation
[2019-01-09] MEDS: DEXAMETHASONE SOD PHOSPHATE 2 MG in SYRINGE 0 ML IV SCH ×2 (03:22→08:52)
[2019-01-09 04:55] LABS: Basophils # (auto) 0.01 K/uL (0-0.2); Basophils % (auto) 0.1 %; Hematocrit (blood only) 41.8 % (42-52); Hemoglobin 14.5 g/dL (14.0-18.0); Immature Granulocytes # (auto) 0.02 K/uL (0.00-0.02); Immature Granulocytes % (auto) 0.2 %; Lymphocytes # (auto) 1.13 K/uL (1.2-3.4); Lymphocytes % (auto) 12.3 %; Mean Corpuscular Hgb Conc 34.7 g/dL (32-36); Mean Corpuscular Volume 84.3 fL (80-100); Mean Platelet Volume 9.2 fL (7.4-10.4); Monocytes # (auto) 0.37 K/uL (0.11-0.59); Neutrophils # (auto) 7.69 K/uL (1.4-6.5); Neutrophils % (auto) 83.4 %; Platelet Count 225 K/uL (130-400); RDW Coefficient of Variation 13.3 % (11.5-14.5); RDW Standard Deviation 40.2 fL (36.4-46.3); Red Blood Count 4.96 M/uL (4.7-6.1); White Blood Count 9.22 K/uL (4.8-10.8)
[2019-01-09 05:25] LABS: BUN Creatinine Ratio 18.1 (10-20); Calcium 8.9 mg/dl (8.5-10.1); Creatinine Clr Calc Pharmacy 55.1 ml/min; Est GFR (African American) 50.8; Est GFR (Non-African American) 43.8; Potassium 3.4 mmol/L (3.5-5.1)
[2019-01-09] MEDS ORDERED: LEVOTHYROXINE SODIUM 150 MCG TABLET PO SCH (06:30)
[2019-01-09] MEDS: LOVASTATIN 20 MG TAB PO SCH (08:51)
[2019-01-09] MEDS: APIXABAN 5 MG TABLET PO SCH (08:51)
[2019-01-09] MEDS: CHLORTHALIDONE 25 MG TAB PO SCH (08:51)
[2019-01-09] MEDS: FENOFIBRATE NANOCRYSTALLIZED 145 MG TABLET PO SCH (08:51)
[2019-01-09] MEDS: INSULIN ASPART 100 UNITS/ML 3 ML PEN SC SCH ×2 (08:52→12:05)
[2019-01-09] MEDS: TAMSULOSIN HCL 0.4 MG CAP PO SCH (08:58)
[2019-01-09] MEDS ORDERED: INSULIN GLARGINE SOLOSTAR 100 UNITS/ML 3 ML PEN SQ SCH (09:00)
[2019-01-09] MEDS ORDERED: METOPROLOL SUCC 50MG EXT REL TAB PO SCH (09:00)
--- NOTE | 2019-01-09 09:40 | Hospitalist Progress Note ---
Date of Service January 09, 2019 Assessment & Plan (1) Memory loss: Admitted with the acute memory impairment with history of memory problem for the last 1 month Not associated with any significant headache, visual symptoms and/or other neurological symptoms MRI showed 4.6 x 4 cm left frontotemporal lesion with vasogenic edema Case discussed with the neurosurgery at [place] and the neurosurgeon Dr. Lezama will see him on the at 3:15 PM in [place] for evaluation and subsequent management He has put on Decadron 2 mg every 6 hours to decrease the brain edema Case discussed with most of the family members in front of the patient this morning Answered all of their questions Patient has been feeling better and still has memory lapses Hemodynamically stable No more memory impairment noted since admission (2) Brain tumor: MRI of the brain:1. 4.6 x 4 cm heterogeneously enhancing intra-axial mass within the left frontotemporal region with extension into the left lateral ventricle. Moderate mass effect with vasogenic edema and mild rightward midline shift. A small subependymal enhancing nodule and multiple small enhancing foci within the left temporal lobe. 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 Metastatic disease is within the differential although considered less likely. Neurosurgical consultation is recommended. 2. No evidence for acute infarction. As brain tumor-could be malignant Associated vasogenic edema Decadron 2 mg p.o. every 6 hours prescribed Has been feeling a lot better without any significant symptoms We will continue with Decadron 2 mg p.o. 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 fib with controlled rate Evaluated by fall intern Has been put on Eliquis Echo: Aortic valve sclerosis mild without significant aortic stenosis, moderate concentric left ventricular hypertrophy, normal left ventricular size with EF of 55 to 60%, right ventricular systolic function is normal, left atria and right atria are normal, no significant valvular pathology and no interatrial shunt demonstrated Remains stable hemodynamically Rate is controlled (4) DAVIS (acute kidney injury): DAVIS likely secondary to dehydration We will monitor her while in the hospital Creatinine slightly improved to 1.53 (5) Hypothyroidism: Has been on 175 mcg levothyroxine TSH is noted to be low at 0.067 with free T4 high at 1.72 We will decrease thyroxine dose to 150 mcg daily We need to repeat TSH in about 3 to 4 weeks (6) Diabetes mellitus: Will hold metformin Continue with SSI (7) Hypertension: Blood pressure remains in the upper side of normal Will not change any of his blood pressure medications right now New home medications DVT prophylaxis Eliquis CODE STATUS Full The case was discussed with many of the family members including the and service in presence of the patient Answered all of their questions They seem quite satisfied The patient will be discharged home tomorrow He has a strongly advised to keep appointment with neurosurgeon in [place] as an outpatient on 10 January at 3:15 PM (8) Clear cell carcinoma of left kidney: History of clear cell carcinoma of the left kidney Status post left nephrectomy in 2008 at [facility]. The current translation could be secondary to metastatic disease Subjective 01/08 The patient was seen and examined in ICU He has been complaining of memory impairment for the last 1 month and the condition got worse yesterday He still has memory impairment but denies any other significant symptoms No headache, no blurred vision, no nausea and/or vomiting, no numbness or tingling in the extremities, no problem with walking, talking and/or swallowing 01/09 The patient was seen and examined in ICU He has been feeling a lot better Denies any memory impairment Denies any neuro symptoms No cardiac symptoms as well Review of Systems Review of Systems: All systems reviewed and are unremarkable except as noted below Cardiovascular: no chest pain Neurologic: + headache(s) (Complaint to have headache about 2 to 3 days back but not now) and + memory loss (Has been having memory impairment for the last 1 month and is worse before admission); no paralysis, no loss of sensation, no tingling, no numbness, no paresthesia and no tremor(s) Physical Exam Physical Exam: Sitting at the age of the bed without any symptoms Constitutional: well developed, well nourished and + obese; no acute distress and not ill appearing Eyes: PERRL, conjunctivae normal, anicteric sclerae ENMT: external ear and nose normal, oropharynx normal Neck: trachea midline, no thyromegaly Respiratory: normal respiratory effort Auscultation: lungs clear to auscultation bilaterally; no crackles Cardiovascular: Rate/Rhythm: + abnormal rate, + abnormal rhythm and not tachycardic Heart Sounds: no murmur Gastrointestinal (Abdomen): Inspection/Auscultation: abdomen normal to inspection and normal bowel sounds Percussion/Palpation: abdomen soft Musculoskeletal: No acute arthritis in any joints Neurologic: normal touch/pain/proprioception, CN's II-XI intact bilaterally and moves all extremities; no focal motor deficits Speech / Cognition: normal speech Psychiatric: Affect: + anxious affect Mood: + anxious mood Cognition: + recent memory not intact and + remote memory not intact Lymphatic: no cervical or axillary lymphadenopathy Results & Data Vital Signs (Past 12 Hours) Vital Signs Temp Pulse Resp BP Pulse Ox 01/09/19 03:25 36.9 C 70 14 143/83 H 94 01/09/19 00:06 37.0 C 78 15 119/72 Laboratory Results Short CBC 01/09/19 Range/Units 04:20 WBC 9.22 (4.8-10.8) K/uL Hgb 14.5 (14.0-18.0) g/dL Hct 41.8 L (42-52) % Plt Count 225 (130-400) K/uL BMP 01/09/19 04:20 Sodium 141 Potassium 3.4 L Chloride 105 Carbon Dioxide 26 BUN 28 H Creatinine 1.53 H Glucose 150 H Calcium 8.9 Medications Administered Current Inpatient Medications Acetaminophen (Tylenol) 650 mg PO Q4H PRN PRN Reason: Pain or Fever Stop: 02/06/19 21:50 Amlodipine Besylate (Norvasc) 10 mg PO DAILY ADAM Stop: 02/07/19 08:59 Last Admin: 01/09/19 09:56 Dose: 10 mg Documented by: Apixaban (Eliquis) 5 mg PO BID ADAM Stop: 02/07/19 09:29 Last Admin: 01/09/19 08:51 Dose: 5 mg Documented by: Chlorthalidone (Hygroton) 50 mg PO DAILY ADAM Stop: 02/07/19 08:59 Last Admin: 01/09/19 08:51 Dose: 50 mg Documented by: Dextrose (Dextrose 50%) 25 - 50 ml IV UD PRN; Protocol PRN Reason: Hypoglycemia Protocol Stop: 02/06/19 21:59 Fenofibrate (Tricor) 145 mg PO DAILY ADAM Stop: 02/07/19 08:59 Last Admin: 01/09/19 08:51 Dose: 145 mg Documented by: Gadobutrol (Gadavist 65ml) 12 ml IV ONCE PRN PRN Reason: Interaction Checking Stop: 01/11/19 23:27 Last Admin: 01/07/19 23:29 Dose: 12 ml Documented by: Glucagon (Glucagen) 1 mg SQ UD PRN; Protocol PRN Reason: Hypoglycemia Protocol Stop: 02/06/19 21:59 Glucose (Glucose 40%) 15 - 30 gm PO UD PRN; Protocol PRN Reason: Hypoglycemia Protocol Stop: 02/06/19 21:59 Glucose (Dex4 Glucose) 4 - 8 tabs PO UD PRN; Protocol PRN Reason: Hypoglycemia Protocol Stop: 02/06/19 21:59 Dexamethasone Sodium Phosphate (2 mg/ Syringe) 0.5 mls @ 1 mls/min IV Q6H ADAM Stop: 02/07/19 13:59 Last Admin: 01/09/19 08:52 Dose: 1 mls/min Documented by: Insulin Aspart (Novolog Flexpen) 0 units SC ACHS [facility] Stop: 02/07/19 07:29 Last Admin: 01/09/19 08:52 Dose: 5 units Documented by: Insulin Glargine (Lantus Solostar Pen) 14 units SQ DAILY ADAM Stop: 02/08/19 08:59 Last Admin: 01/09/19 08:52 Dose: 14 units Documented by: Levothyroxine Sodium (Synthroid) 150 mcg PO DAILYBB [facility] Stop: 02/08/19 06:29 Last Admin: 01/09/19 06:49 Dose: 150 mcg Documented by: Lovastatin (Mevacor) 40 mg PO DAILY [facility] Stop: 02/07/19 08:59 Last Admin: 01/09/19 08:51 Dose: 40 mg Documented by: Metoprolol Succinate (Toprol Xl) 50 mg PO QAM [facility] Stop: 02/08/19 08:59 Last Admin: 01/09/19 08:51 Dose: 50 mg Documented by: Miscellaneous (Carbohydrates For Hypoglycemia) 15 - 30 gm PO UD PRN PRN Reason: Hypoglycemia Treatment Stop: 02/06/19 21:59 Nitroglycerin (Nitrostat) 0.4 mg SL UD PRN PRN Reason: Chest Pain Stop: 02/06/19 21:50 Ondansetron HCl (Zofran) 4 mg IV Q6H PRN PRN Reason: Nausea Stop: 02/06/19 21:50 Polyethylene Glycol (Miralax Powder Packet) 17 gm PO DAILY PRN PRN Reason: Constipation Stop: 02/06/19 21:50 Tamsulosin HCl (Flomax) 0.4 mg PO DAILY ADAM Stop: 02/07/19 08:59 Last Admin: 01/09/19 08:58 Dose: 0.4 mg Documented by: (1) A-fib Atrial fibrillation type: unspecified Qualified Code(s): I48.91 - Unspecified atrial fibrillation
[2019-01-09] MEDS: AMLODIPINE BESYLATE 5 MG TAB PO SCH (09:56)
[2019-01-09] MEDS ORDERED: STROKE PATIENT DISCHARGE STA (12:28)
[2019-01-09] MEDS ORDERED: dexAMETHasone 1 MG TAB PO SCH (14:00)
--- NOTE | 2019-01-09 19:15 | Discharge Summary ---
Date of Service January 09, 2019 Admission HPI Per Admitting Provider DICTATED BY: Hiram Bowen MD DATE OF ADMISSION: 01/07/2019 CHIEF COMPLAINT: Memory issues and also right eye vision issues. HISTORY OF PRESENT ILLNESS: A 73-year-old male with past medical history significant for type 2 diabetes, hypothyroidism, hyperlipidemia, BPH, chronic kidney disease stage III, hypertension, obesity, solitary kidney, comes because of ongoing memory issues and also complains of right vision issues. The patient says it is going on for last 3 weeks, but got it more worse last 1 week, but family thinks all started about a week ago. They also said they saw the family doctor, did a mini mental exam, but could not see it in the Epic records. He also saw ophthalmology last Tuesday he told them that he has some vision issues with the right eye and they checked his eye and told it was fine as per the patient and the family. There was question of some balance issues. The patient thinks because he could not see right he has some balance issues, but the family thinks he is walking okay. Speech is clear. No swallowing issues. Appetite is good. Denies any headaches. No nausea, no vomiting, no chest pain, no shortness of breath, no cough, no fever, no chills. Sleeping okay. No abdominal pain. Normal bowel and bladder movements. Denies any blood in the stools or black stools. No dysuria or hematuria. No swelling in the legs, no rash. Currently resting comfortably and hemodynamically stable. Admission Exam Per Admitting Provider GENERAL: The patient is obese, not in acute distress. VITAL SIGNS: Temperature 36.8, pulse 69, respiratory rate 18, blood pressure 160/90, oxygen 96% room air. HEENT: No pallor, no icterus. Pupils equal, round, and reactive to light. His vision is blurry on the right side, but vision jasso are okay. Extraocular muscles intact. NECK: No JVD, no neck masses, no carotid bruits. CARDIOVASCULAR: S1, S2 heard, regular rate and rhythm, no murmur, no gallop. RESPIRATORY SYSTEM: Normal AP diameter. No accessory muscle use. No wheezing, no crackles. ABDOMEN: Soft, bowel sounds present, nontender. No distention. CENTRAL NERVOUS SYSTEM: Cranial nerves II-XII grossly intact. Oriented to name and place only. Could not subtract 7 from 93, could tell his date of . Power 5/5 in all extremities. Sensation is intact. Position sense intact. [id number] test normal. Coordination of movements normal. No pronator drift. Jewa-[id number] test normal. Babinski negative. EXTREMITIES: No edema, no erythema. Principal Diagnosis Memory impairment, left frontotemporal brain mass, atrial fibrillation, diabetes mellitus type 2, hypothyroidism History of clear cell carcinoma of left kidney status post nephrectomy in 2009 Discharge Exam Constitutional well developed, well nourished and + obese; no acute distress and not ill appearing Eyes PERRL, conjunctivae normal, anicteric sclerae ENMT external ear and nose normal, oropharynx normal Neck trachea midline, no thyromegaly Respiratory normal respiratory effort Auscultation: lungs clear to auscultation bilaterally; no crackles Cardiovascular Rate/Rhythm: + abnormal rate, + abnormal rhythm and not tachycardic Heart Sounds: no murmur Gastrointestinal (Abdomen) Inspection/Auscultation: abdomen normal to inspection and normal bowel sounds Percussion/Palpation: abdomen soft Neurologic normal touch/pain/proprioception, CN's II-XI intact bilaterally and moves all extremities; no focal motor deficits Speech / Cognition: normal speech Psychiatric Affect: + anxious affect Mood: + anxious mood Cognition: + recent memory not intact and + remote memory not intact Lymphatic no cervical or axillary lymphadenopathy Discharge Data Allergies Allergy/AdvReac Type Severity Reaction Status Date / Time aspirin Allergy Intermediate HIVES Verified 01/07/19 21:22 Consultations 01/07/19 20:01 ED Decision to Admit Stat 01/07/19 21:51 Consult Case Management - Discharge Planning Routine 01/08/19 08:00 Consult Cardiology Routine Ordered Studies 01/07/19 18:23 CT head/brain wo con Stat 01/07/19 21:35 MR angio head wo con Stat MR angio neck wo con Stat MR brain wo/w con Stat Hospital Course (1) Memory loss: Admitted with the acute memory impairment with history of memory problem for the last 1 month Not associated with any significant headache, visual symptoms and/or other neurological symptoms MRI showed 4.6 x 4 cm left frontotemporal lesion with vasogenic edema Case discussed with the neurosurgery at [place] and the neurosurgeon Dr. Lezama will see him on the at 3:15 PM in [place] for evaluation and subsequent management He has put on Decadron 2 mg every 6 hours to decrease the brain edema Case discussed with most of the family members in front of the patient this morning Answered all of their questions Patient has been feeling better and still has memory lapses Hemodynamically stable No more memory impairment noted since admission (2) Brain tumor: MRI of the brain:1. 4.6 x 4 cm heterogeneously enhancing intra-axial mass within the left frontotemporal region with extension into the left lateral ventricle. Moderate mass effect with vasogenic edema and mild rightward midline shift. A small subependymal enhancing nodule and multiple small enhancing foci within the left temporal lobe. 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 Metastatic disease is within the differential although considered less likely. Neurosurgical consultation is recommended. 2. No evidence for acute infarction. As brain tumor-could be malignant Associated vasogenic edema Decadron 2 mg p.o. every 6 hours prescribed Has been feeling a lot better without any significant symptoms We will continue with Decadron 2 mg p.o. 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 fib with controlled rate Evaluated by salad chef Has been put on Eliquis Echo: Aortic valve sclerosis mild without significant aortic stenosis, moderate concentric left ventricular hypertrophy, normal left ventricular size with EF of 55 to 60%, right ventricular systolic function is normal, left atria and right atria are normal, no significant valvular pathology and no interatrial shunt demonstrated Remains stable hemodynamically Rate is controlled (4) DAVIS (acute kidney injury): DAVIS likely secondary to dehydration We will monitor her while in the hospital Creatinine slightly improved to 1.53 (5) Hypothyroidism: Has been on 175 mcg levothyroxine TSH is noted to be low at 0.067 with free T4 high at 1.72 We will decrease thyroxine dose to 150 mcg daily We need to repeat TSH in about 3 to 4 weeks (6) Diabetes mellitus: Will hold metformin Continue with SSI (7) Hypertension: Blood pressure remains in the upper side of normal Will not change any of his blood pressure medications right now New home medications DVT prophylaxis Eliquis CODE STATUS Full The case was discussed with many of the family members including the and service in presence of the patient Answered all of their questions They seem quite satisfied The patient will be discharged home tomorrow He has a strongly advised to keep appointment with neurosurgeon in [place] as an outpatient on 10 January at 3:15 PM (8) Clear cell carcinoma of left kidney: History of clear cell carcinoma of the left kidney Status post left nephrectomy in 2008 at [facility]. The current translation could be secondary to metastatic disease Total Time Total Time Spent Total Time Spent (In Minutes): 35 minutes Total Time Includes: Examination of the Patient, Discharge Planning, Medication Reconciliation and Communication With Other Providers Discharge Plan Discharge Items Patient Disposition: Home - Self-Care Reason For Visit: MEMORY ISSUES, RIGHT EYE VISION ISSUES Discharge Diagnosis: Memory impairment, left frontotemporal brain mass, atrial fibrillation, diabetes mellitus type 2, hypothyroidism History of clear cell carcinoma of left kidney status post nephrectomy in 2008 Condition: Good Discharge Goals: Decrease discomfort, Improve function and Increase independence Activity: Resume your previous activity Non-emergency contact: Primary Care Provider Call non-emergency contact if: you have any medication questions and your symptoms worsen Follow-up/Referrals: Mk Noel [Primary Care Provider] - (Your doctor's office will call with an appointment within 7 days. Please make an appointment with your salad chef) Diet: Heart Healthy Addtl Provider Instructions: Please keep your appointment with Dr. Lezama, the neurosurgeon, on 01/10 at 3:15 PM in [place]. Your Synthroid dose is decreased to 150 mcg daily. Please have a TSH checked in about 2 to 3 weeks through your primary care's office You will be taking dexamethasone 2 mg p.o. every 6 hourly. Recheck your blood sugar at least twice a day as long as you are on dexamethasone. You were prescribed with Eliquis for your atrial fibrillation Your insulin dose is increased to 20 units at night Prescriptions: New dexamethasone 1 mg Tablet 2 mg PO Q6H 10 Days Qty: 80 RF: 0 levothyroxine [Synthroid] 150 mcg Tablet 150 mcg PO DAILYBB Qty: 30 RF: 0 Eliquis 5 mg Tablet 5 mg PO BID 30 Days Qty: 60 RF: 0 Continued metoprolol succinate 50 mg tablet extended release 24 hr 50 mg PO DAILY RF: 0 lovastatin 40 mg tablet 40 mg PO DAILY RF: 0 chlorthalidone 50 mg tablet 50 mg PO DAILY RF: 0 tamsulosin 0.4 mg capsule 0.4 mg PO DAILY RF: 0 amlodipine 10 mg tablet 10 mg PO DAILY RF: 0 glimepiride 4 mg tablet 4 mg PO DAILY RF: 0 lisinopril 5 mg tablet 5 mg PO DAILY RF: 0 fenofibrate 160 mg tablet 160 mg PO DAILY RF: 0 Tradjenta 5 mg Tablet 5 mg PO DAILY RF: 0 Changed Toujeo SoloStar U-300 Insulin 300 unit/mL (1.5 mL) insulin pen 20 unit subcut HS Qty: 0 RF: 0 Discontinued levothyroxine 175 mcg tablet 175 mcg PO DAILY RF: 0 Stand-Alone Forms: [facility] Discharge Orders: Discharge Order (Routine); Ordered 01/09/19 Ordered By: Sarai Velasco Admission Data Admit Date/Time: 01/07/19 21:03 Attending Provider: Sarai Velasco Admit Provider: Hiram Bowen Primary Care Provider: Mk Noel Other Providers: Hiram Bowen ; Anil Lott Service: Telemetry Other Interventions: Discharge Summary Assessment (RN) Last Done: 01/09/19 13:27 DC Date/Time DO NOT enter until pt leaves facility: 01/09/19 14:03
== END 2019-01-09 14:03 | disposition home or self-care (01) | DRG 54 ==
LOC: ED 18:04 → 1E 21:03
DX: I48.91 Unspecified atrial fibrillation; N40.0 Benign prostatic hyperplasia without lower urinary tract symptoms; D43.2 Neoplasm of uncertain behavior of brain, unspecified; E78.5 Hyperlipidemia, unspecified; G93.6 Cerebral edema; E03.9 Hypothyroidism, unspecified; E66.9 Obesity, unspecified; N18.3 Chronic kidney disease, stage 3 (moderate); E11.22 Type 2 diabetes mellitus with diabetic chronic kidney disease; I12.9 Hypertensive chronic kidney disease with stage 1 through stage 4 chronic kidney disease, or unspecified chronic kidney disease